=== PATIENT | male | born 1955 | race Caucasian/White ===

== ENCOUNTER 2017-07-28 12:02 | Inpatient (IN) | payer OTHER ==
[~2017-07-28] VITALS: Ht 165.1 cm; Wt 83.2 kg
[~2017-07-28 12:02] MED LIST: GLU5 PO; GLU500 PO; LACTULOSE10 GM/152 PO; NEO500 PO; THERAGRAN-M1 TA4 PO
[2017-07-28 12:08] VITALS: Ht 165.1 cm; Wt 83.2 kg
[2017-07-28 13:25] LABS: BASOPHIL % 1.7 % (0-2)
[2017-07-28 13:33] LABS: PLATELET COUNT 123 x10^3mcL (130-400); RED CELL DISTRIBUTION WIDTH 16.3 % (11.5-14.5)
[2017-07-28 13:45] LABS: CALCIUM 9.4 mg/dL (8.5-10.1); CARBON DIOXIDE 26.4 mmol/L (21-32); CHLORIDE SERUM 104 mmol/L (98-107); GFR1 > 60 mL/min; GLUCOSE SERUM 342 mg/dL (74-106); POTASSIUM SERUM 4.3 mmol/L (3.5-5.1); SODIUM SERUM 134 mmol/L (136-145)
[2017-07-28 13:51] LABS: ALKALINE PHOSPHATASE 137 U/L (46-116); ALT/SGPT 31 U/L (16-63); AST/SGOT 39 U/L (15-37); BILIRUBIN TOTAL 1.3 mg/dL (0.20-1.00); LIPASE 192 IU/L (73-393); TOTAL PROTEIN, SERUM 7.1 g/dL (6.4-8.2); TRIGLYCERIDES 49 mg/dL (<150)
[2017-07-28 13:53] LABS: ALBUMIN 2.8 g/dL (3.4-5.0); CHOLESTEROL 124 mg/dL (<200); CHOLESTEROL/HDL RATIO 1.7; HDL CHOLESTEROL 72 mg/dL (40-60)
[2017-07-28 14:33] LABS: T3 TOTAL 0.73 ng/mL
[2017-07-28 14:35] LABS: FREE T4 1.18 ng/dL (0.76-1.46); FREE THYROXINE INDEX 2.2 ug/dL (1.4-4.5); T4(THYROXINE) 6.5 ug/dL (4.7-13.3)
[2017-07-28] MEDS ORDERED: METFORMIN HCL750 MG PO (17:56)
[2017-07-28] MEDS ORDERED: OMEPRAZOLE40 M1 PO (17:56)
[2017-07-28] MEDS ORDERED: CLOBETASOL PROP0.05% TOP (17:57)
[2017-07-28] MEDS ORDERED: CALCIPOTRIENE TOP (17:58)
[2017-07-28] MEDS ORDERED: CRESTOR10 M1 PO (17:59)
[2017-07-28] MEDS ORDERED: SPIRONOLACTONE100 MG PO (17:59)
[2017-07-28] MEDS ORDERED: GOOD SENSE OMEP20 MG PO (18:02)
[2017-07-28 18:38] LABS: UA SPECIFIC GRAVITY 1.015 (1.005-1.035); microscopic required? YES; urine erythrocyte NEGATIVE (NEGATIVE)
[2017-07-28 18:45] VITALS: BP 145/63
[2017-07-28 18:51] LABS: AMPHETAMINE QUAL UR NONE DETECTED (NEG <=1000)
[2017-07-28 18:52] LABS: MAGNESIUM 2.1 mg/dL (1.8-2.4); PHOSPHOROUS 2.9 mg/dL (2.5-4.9)
[2017-07-28 20:48] VITALS: BP 185/82
[2017-07-28 21:58] VITALS: BP 153/57
[2017-07-29 05:46] VITALS: BP 143/85
[2017-07-29 07:33] LABS: CALCIUM 8.4 mg/dL (8.5-10.1); CHLORIDE SERUM 107 mmol/L (98-107); CREATININE SERUM 0.9 mg/dL (0.7-1.3); GFR1 > 60 mL/min; GLUCOSE SERUM 226 mg/dL (74-106); POTASSIUM SERUM 3.9 mmol/L (3.5-5.1); SODIUM SERUM 140 mmol/L (136-145)
[2017-07-29 07:38] LABS: BASOPHIL % 1.3 % (0-2)
[2017-07-29 07:39] LABS: PLATELET COUNT 105 x10^3mcL (130-400); RED CELL DISTRIBUTION WIDTH 16.5 % (11.5-14.5)
[2017-07-29 09:09] VITALS: BP 140/64
[2017-07-29 13:17] VITALS: BP 174/91
[2017-07-29 16:44] VITALS: BP 150/76
[2017-07-29 19:43] VITALS: BP 139/76
[2017-07-29 20:42] VITALS: BP 131/70
[2017-07-30 06:40] VITALS: BP 165/78
[2017-07-30 07:27] LABS: CALCIUM 8.8 mg/dL (8.5-10.1); CHLORIDE SERUM 105 mmol/L (98-107); CREATININE SERUM 0.8 mg/dL (0.7-1.3); GFR1 > 60 mL/min; GLUCOSE SERUM 146 mg/dL (74-106); MAGNESIUM 1.8 mg/dL (1.8-2.4); PHOSPHOROUS 3.8 mg/dL (2.5-4.9); POTASSIUM SERUM 3.6 mmol/L (3.5-5.1); SODIUM SERUM 140 mmol/L (136-145)
[2017-07-30 08:19] LABS: BASOPHIL % 1.3 % (0-2)
[2017-07-30 08:22] LABS: PLATELET COUNT 116 x10^3mcL (130-400); RED CELL DISTRIBUTION WIDTH 16.6 % (11.5-14.5)
[2017-07-30 08:46] VITALS: BP 168/77
[2017-07-30 09:32] VITALS: BP 146/78
[2017-07-30] MEDS ORDERED: ZESTRIL40 MG PO (10:32)
[2017-07-30] MEDS ORDERED: METFORMIN HYD1000 M2 PO (10:33)
[2017-07-30] MEDS ORDERED: LAC30L PO (10:33)
[2017-07-30 10:57] VITALS: BP 168/77
[2017-07-30 11:05] VITALS: BP 138/85
== END 2017-07-30 14:38 | disposition home health service (06) | DRG 441 ==
LOC: ED 12:02 → DU 15:52
PROVIDERS: Family Medicine Sports Medicine; Specialist
DX: K72.90 Hepatic failure, unspecified without coma (principal); N17.0 Acute kidney failure with tubular necrosis; E43 Unspecified severe protein-calorie malnutrition; E87.1 Hypo-osmolality and hyponatremia; I16.0 Hypertensive urgency; E11.65 Type 2 diabetes mellitus with hyperglycemia; K74.60 Unspecified cirrhosis of liver; D69.59 Other secondary thrombocytopenia; Z91.14 Patient's other noncompliance with medication regimen; Z68.32 Body mass index [BMI] 32.0-32.9, adult
CPT/HCPCS: 83880; 84439; J7030; Q0092

== ENCOUNTER 2017-08-31 18:03 | Inpatient (IN) | payer OTHER ==
[~2017-08-31] VITALS: Ht 165.1 cm; Wt 78.2 kg
[~2017-08-31 18:03] MED LIST changes: +CALCIPOTRIENE TOP; +CLOBETASOL PROP0.05% TOP; +CRESTOR10 M1 PO; +GOOD SENSE OMEP20 MG PO; +LAC30L PO; +METFORMIN HCL750 MG PO; +METFORMIN HYD1000 M2 PO; +OMEPRAZOLE40 M1 PO; +SPIRONOLACTONE100 MG PO; +ZESTRIL40 MG PO
[2017-08-31 18:15] VITALS: Ht 165.1 cm; Wt 78.2 kg
[2017-08-31 18:36] LABS: microscopic required? NO
[2017-08-31 18:47] LABS: urine erythrocyte NEGATIVE (NEGATIVE)
[2017-08-31 18:58] LABS: AMPHETAMINE QUAL UR NONE DETECTED (NEG <=1000)
[2017-08-31 19:03] LABS: BASOPHIL % 0.4 % (0-2)
[2017-08-31 19:05] LABS: PLATELET COUNT 98 x10^3mcL (130-400); RED CELL DISTRIBUTION WIDTH 16.8 % (11.5-14.5)
[2017-08-31 19:13] LABS: CALCIUM 9.5 mg/dL (8.5-10.1); CARBON DIOXIDE 21.6 mmol/L (21-32); CHLORIDE SERUM 103 mmol/L (98-107); CREATININE SERUM 1.1 mg/dL (0.7-1.3); GFR1 > 60 mL/min; GLUCOSE SERUM 144 mg/dL (74-106); POTASSIUM SERUM 4.9 mmol/L (3.5-5.1); SODIUM SERUM 133 mmol/L (136-145)
[2017-08-31 19:17] LABS: ALKALINE PHOSPHATASE 163 U/L (46-116); ALT/SGPT 77 U/L (16-63); AST/SGOT 72 U/L (15-37); BILIRUBIN TOTAL 0.9 mg/dL (0.20-1.00); LIPASE 371 IU/L (73-393); TOTAL PROTEIN, SERUM 7.7 g/dL (6.4-8.2)
[2017-08-31 19:18] LABS: ALBUMIN 3.2 g/dL (3.4-5.0)
[2017-08-31 21:14] LABS: CHOLESTEROL/HDL RATIO 2.7; PHOSPHOROUS 3.3 mg/dL (2.5-4.9)
[2017-08-31 21:20] LABS: T3 TOTAL 0.87 ng/mL
[2017-08-31 21:45] LABS: FREE T4 1.28 ng/dL (0.76-1.46); FREE THYROXINE INDEX 2.6 ug/dL (1.4-4.5); T4(THYROXINE) 7.6 ug/dL (4.7-13.3)
[2017-08-31 22:26] VITALS: BP 152/87
[2017-09-01 05:51] VITALS: BP 163/89
[2017-09-01 07:55] LABS: BASOPHIL % 0.8 % (0-2)
[2017-09-01 08:01] LABS: CALCIUM 8.7 mg/dL (8.5-10.1); CARBON DIOXIDE 19.5 mmol/L (21-32); CHLORIDE SERUM 106 mmol/L (98-107); GFR1 > 60 mL/min; GLUCOSE SERUM 137 mg/dL (74-106); MAGNESIUM 1.8 mg/dL (1.8-2.4); POTASSIUM SERUM 4.1 mmol/L (3.5-5.1); SODIUM SERUM 138 mmol/L (136-145)
[2017-09-01 08:05] LABS: PLATELET COUNT 75 x10^3mcL (130-400); RED CELL DISTRIBUTION WIDTH 16.5 % (11.5-14.5)
[2017-09-01 10:02] VITALS: BP 162/83
[2017-09-01 14:19] VITALS: BP 133/81
[2017-09-01 16:46] VITALS: BP 147/87
[2017-09-02 05:30] VITALS: BP 113/67
[2017-09-02 07:29] LABS: BASOPHIL % 0.8 % (0-2)
[2017-09-02 07:43] LABS: PLATELET COUNT 79 x10^3mcL (130-400); RED CELL DISTRIBUTION WIDTH 16.8 % (11.5-14.5)
[2017-09-02 07:45] LABS: CALCIUM 8.6 mg/dL (8.5-10.1); CARBON DIOXIDE 20.2 mmol/L (21-32); CHLORIDE SERUM 107 mmol/L (98-107); CREATININE SERUM 0.9 mg/dL (0.7-1.3); GFR1 > 60 mL/min; GLUCOSE SERUM 123 mg/dL (74-106); MAGNESIUM 1.6 mg/dL (1.8-2.4); PHOSPHOROUS 4.1 mg/dL (2.5-4.9); POTASSIUM SERUM 3.8 mmol/L (3.5-5.1); SODIUM SERUM 137 mmol/L (136-145)
[2017-09-02 09:00] VITALS: BP 118/71
[2017-09-02 12:38] VITALS: BP 109/56
[2017-09-02 17:35] VITALS: BP 94/59
[2017-09-02 20:51] VITALS: BP 106/55
[2017-09-03 05:47] VITALS: BP 122/63
[2017-09-03 07:19] LABS: BASOPHIL % 0.4 % (0-2)
[2017-09-03 07:46] LABS: PLATELET COUNT 90 x10^3mcL (130-400)
[2017-09-03 07:47] LABS: CALCIUM 8.7 mg/dL (8.5-10.1); CARBON DIOXIDE 19.3 mmol/L (21-32); CHLORIDE SERUM 105 mmol/L (98-107); CREATININE SERUM 0.9 mg/dL (0.7-1.3); GFR1 > 60 mL/min; GLUCOSE SERUM 111 mg/dL (74-106); PHOSPHOROUS 4.3 mg/dL (2.5-4.9); POTASSIUM SERUM 4.2 mmol/L (3.5-5.1); SODIUM SERUM 135 mmol/L (136-145)
[2017-09-03 09:24] VITALS: BP 111/61
[2017-09-03 12:41] VITALS: BP 98/55
[2017-09-03] MEDS ORDERED: XIFAXAN550 M1 PO (16:56)
[2017-09-03] MEDS ORDERED: ADA30 PO (16:57)
[2017-09-03 17:35] VITALS: BP 98/55
[2017-09-03 17:39] VITALS: BP 101/53
== END 2017-09-03 19:24 | disposition home or self-care (01) | DRG 442 ==
LOC: ED 18:03 → DU 20:35
PROVIDERS: Emergency Medicine; Family Medicine
DX: K72.90 Hepatic failure, unspecified without coma (principal); E87.1 Hypo-osmolality and hyponatremia; E44.0 Moderate protein-calorie malnutrition; K70.30 Alcoholic cirrhosis of liver without ascites; F10.21 Alcohol dependence, in remission; D69.59 Other secondary thrombocytopenia; E83.42 Hypomagnesemia; E11.65 Type 2 diabetes mellitus with hyperglycemia; I10 Essential (primary) hypertension; I34.0 Nonrheumatic mitral (valve) insufficiency; I37.1 Nonrheumatic pulmonary valve insufficiency; Z79.84 Long term (current) use of oral hypoglycemic drugs; Z68.28 Body mass index [BMI] 28.0-28.9, adult
CPT/HCPCS: 83880; 84439; G0480; J3475; J7030; Q0092

== ENCOUNTER 2018-01-25 12:17 | Emergency (ER) | payer OTHER ==
[~2018-01-25] VITALS: Ht 167.6 cm; Wt 83.5 kg
[~2018-01-25 12:17] MED LIST changes: +ADA30 PO; +XIFAXAN550 M1 PO
[2018-01-25 12:22] VITALS: Ht 167.6 cm; Wt 83.5 kg
[2018-01-25 13:23] VITALS: BP 147/82
== END 2018-01-25 13:23 | disposition home or self-care (01) ==
LOC: ED 12:17
DX: S31.159A Open bite of abdominal wall, unspecified quadrant without penetration into peritoneal cavity, initial encounter (principal); I10 Essential (primary) hypertension; E11.9 Type 2 diabetes mellitus without complications; Z87.19 Personal history of other diseases of the digestive system; W54.0XXA Bitten by dog, initial encounter; Y93.89 Activity, other specified; Y92.89 Other specified places as the place of occurrence of the external cause; Y99.8 Other external cause status
CPT/HCPCS: 90715

== ENCOUNTER 2018-02-07 08:36 | Emergency (ER) | payer OTHER ==
[2018-02-07 08:49] VITALS: Ht 167.6 cm
[2018-02-07 10:41] VITALS: BP 147/86
== END 2018-02-07 10:41 | disposition home or self-care (01) ==
LOC: ED 08:36
DX: S30.1XXD Contusion of abdominal wall, subsequent encounter (principal); I10 Essential (primary) hypertension; E11.9 Type 2 diabetes mellitus without complications; Z98.890 Other specified postprocedural states; W54.0XXD Bitten by dog, subsequent encounter

== ENCOUNTER 2018-08-27 11:19 | Inpatient (IN) | payer OTHER | END 2018-08-29 13:35 | disposition short-term general hospital (02) | LOC: ED 11:19 → DU 14:10 → ED 11:19 → DU 14:10 → ED 11:19 → DU 14:10 → ED 11:19 → DU 14:10 → ED 11:19 → DU 14:10 | DX: I21.4 Non-ST elevation (NSTEMI) myocardial infarction (principal); E44.0 Moderate protein-calorie malnutrition; K74.60 Unspecified cirrhosis of liver; I10 Essential (primary) hypertension; E11.9 Type 2 diabetes mellitus without complications; K21.9 Gastro-esophageal reflux disease without esophagitis; Z68.31 Body mass index [BMI] 31.0-31.9, adult; Z79.84 Long term (current) use of oral hypoglycemic drugs; D69.6 Thrombocytopenia, unspecified ==

== ENCOUNTER 2018-09-05 23:42 | Emergency (ER) | payer OTHER ==
[~2018-09-05] VITALS: Ht 170.2 cm; Wt 83.0 kg
[2018-09-05 23:53] VITALS: Ht 170.2 cm; Wt 83.0 kg
[2018-09-06 01:47] LABS: BASOPHIL % 1.1 % (0-2); PLATELET COUNT 157 x10^3mcL (130-400)
[2018-09-06 01:49] LABS: CALCIUM 9.6 mg/dL (8.5-10.1); CARBON DIOXIDE 22.9 mmol/L (21-32); CHLORIDE SERUM 104 mmol/L (98-107); CREATININE SERUM 1.1 mg/dL (0.7-1.3); GFR1 > 60 mL/min; GLUCOSE SERUM 156 mg/dL (74-106); POTASSIUM SERUM 4.4 mmol/L (3.5-5.1); SODIUM SERUM 137 mmol/L (136-145)
[2018-09-06 02:04] LABS: ALKALINE PHOSPHATASE 152 U/L (46-116); ALT/SGPT 52 U/L (16-63); AST/SGOT 65 U/L (15-37); BILIRUBIN TOTAL 1.02 mg/dL (0.20-1.00); TOTAL PROTEIN, SERUM 7.6 g/dL (6.4-8.2)
[2018-09-06 02:23] LABS: RED CELL DISTRIBUTION WIDTH 16.2 % (11.5-14.5)
[2018-09-06 06:02] VITALS: BP 159/85
== END 2018-09-06 06:09 | disposition short-term general hospital (02) ==
LOC: ED 23:42
PROVIDERS: Emergency Medicine
DX: I45.81 Long QT syndrome (principal); I10 Essential (primary) hypertension; E11.9 Type 2 diabetes mellitus without complications
CPT/HCPCS: 36415; 83880; 85378; Q0092

== ENCOUNTER 2019-01-05 09:55 | Emergency (ER) | payer OTHER ==
[~2019-01-05] VITALS: Ht 165.1 cm; Wt 81.2 kg
[2019-01-05 10:16] VITALS: BP 151/80; Ht 165.1 cm; Wt 81.2 kg
== END 2019-01-05 11:29 | disposition home or self-care (01) ==
LOC: ED 09:55
DX: S01.01XD Laceration without foreign body of scalp, subsequent encounter (principal); I10 Essential (primary) hypertension; E11.9 Type 2 diabetes mellitus without complications; X58.XXXD Exposure to other specified factors, subsequent encounter

== ENCOUNTER 2019-03-11 11:40 | Inpatient (IN) | payer OTHER ==
[~2019-03-11] VITALS: Ht 170.2 cm; Wt 81.6 kg
[2019-03-11 12:34] LABS: CALCIUM 9.4 mg/dL (8.5-10.1); CARBON DIOXIDE 20.2 mmol/L (21-32); CHLORIDE SERUM 103 mmol/L (98-107); CREATININE SERUM 0.9 mg/dL (0.7-1.3); GFR1 > 60 mL/min; GLUCOSE SERUM 126 mg/dL (74-106); SODIUM SERUM 132 mmol/L (136-145)
[2019-03-11 12:39] LABS: ALKALINE PHOSPHATASE 125 U/L (46-116); ALT/SGPT 39 U/L (16-63); AST/SGOT 49 U/L (15-37); BASOPHIL % 1.1 % (0-2); CHOLESTEROL 136 mg/dL (<200); TOTAL PROTEIN, SERUM 7.1 g/dL (6.4-8.2)
[2019-03-11 12:41] LABS: PLATELET COUNT 106 x10^3mcL (130-400); RED CELL DISTRIBUTION WIDTH 15.6 % (11.5-14.5)
[2019-03-11 12:42] LABS: ALBUMIN 3.3 g/dL (3.4-5.0)
[2019-03-11] MEDS ORDERED: OLANZAPINE20 M1 PO (14:27)
[2019-03-11] MEDS ORDERED: CELEBREX200 MG PO (14:27)
[2019-03-11] MEDS ORDERED: METFORMIN HCL750 MG PO (14:27)
[2019-03-11] MEDS ORDERED: CLOPIDOGREL75 M1 PO (14:28)
[2019-03-11] MEDS ORDERED: TRAZODONE50 M1 PO (14:28)
[2019-03-11] MEDS ORDERED: LACTULOSE10 GM/152 PO (14:28)
[2019-03-11 14:37] LABS: MAGNESIUM 1.8 mg/dL (1.8-2.4); PHOSPHOROUS 2.9 mg/dL (2.5-4.9)
[2019-03-11 16:07] VITALS: BP 142/83
[2019-03-11 21:47] VITALS: BP 140/80
[2019-03-12 06:14] VITALS: BP 133/69
[2019-03-12 07:12] LABS: BASOPHIL % 1.1 % (0-2)
[2019-03-12 07:19] LABS: PLATELET COUNT 98 x10^3mcL (130-400); RED CELL DISTRIBUTION WIDTH 16.2 % (11.5-14.5)
[2019-03-12 07:58] LABS: CALCIUM 9.4 mg/dL (8.5-10.1); CARBON DIOXIDE 22.5 mmol/L (21-32); CHLORIDE SERUM 105 mmol/L (98-107); CREATININE SERUM 0.8 mg/dL (0.7-1.3); GFR1 > 60 mL/min; GLUCOSE SERUM 110 mg/dL (74-106); MAGNESIUM 1.8 mg/dL (1.8-2.4); PHOSPHOROUS 3.2 mg/dL (2.5-4.9); POTASSIUM SERUM 4.1 mmol/L (3.5-5.1); SODIUM SERUM 138 mmol/L (136-145)
[2019-03-12 08:56] VITALS: BP 142/79
[2019-03-12 12:45] VITALS: BP 130/63
[2019-03-12 16:50] VITALS: BP 136/67
[2019-03-12 20:00] VITALS: BP 134/70
[2019-03-12 22:10] VITALS: BP 113/61
[2019-03-13 06:05] VITALS: BP 146/73
[2019-03-13 06:27] LABS: BASOPHIL % 1.6 % (0-2)
[2019-03-13 06:47] LABS: PLATELET COUNT 97 x10^3mcL (130-400); RED CELL DISTRIBUTION WIDTH 15.4 % (11.5-14.5)
[2019-03-13 06:52] LABS: CALCIUM 9.3 mg/dL (8.5-10.1); CARBON DIOXIDE 21.6 mmol/L (21-32); CHLORIDE SERUM 102 mmol/L (98-107); CREATININE SERUM 0.9 mg/dL (0.7-1.3); GFR1 > 60 mL/min; GLUCOSE SERUM 119 mg/dL (74-106); MAGNESIUM 1.6 mg/dL (1.8-2.4); POTASSIUM SERUM 4.4 mmol/L (3.5-5.1); SODIUM SERUM 134 mmol/L (136-145)
[2019-03-13 10:09] VITALS: BP 151/65
[2019-03-13 11:22] VITALS: BP 151/65
== END 2019-03-13 12:02 | disposition home or self-care (01) | DRG 441 ==
LOC: ED 11:40 → MU 13:35 → DU 13:35 → MU 15:15 → DU 03-12 13:20
PROVIDERS: Emergency Medicine; Internal Medicine; ADMIT Internal Medicine
DX: K72.00 Acute and subacute hepatic failure without coma (principal); N17.0 Acute kidney failure with tubular necrosis; E87.1 Hypo-osmolality and hyponatremia; E44.1 Mild protein-calorie malnutrition; E72.20 Disorder of urea cycle metabolism, unspecified; I10 Essential (primary) hypertension; K70.30 Alcoholic cirrhosis of liver without ascites; L40.9 Psoriasis, unspecified; F31.9 Bipolar disorder, unspecified; E11.9 Type 2 diabetes mellitus without complications; I25.2 Old myocardial infarction; Z79.84 Long term (current) use of oral hypoglycemic drugs
CPT/HCPCS: 82962; 97116-GP; G0378; G0480; J7030; Q0092

== ENCOUNTER 2019-04-24 07:09 | Inpatient (IN) | payer OTHER ==
[~2019-04-24] VITALS: Ht 167.6 cm; Wt 68.9 kg
[~2019-04-24 07:09] MED LIST changes: +CELEBREX200 MG PO; +CLOPIDOGREL75 M1 PO; +OLANZAPINE20 M1 PO; +TRAZODONE50 M1 PO
[2019-04-24 07:22] VITALS: Ht 167.6 cm; Wt 68.9 kg
--- NOTE | 2019-04-24 07:25 | NUR ---
PT ASSISTED TO ASSIGNED BED VIA WHEELCHAIR. PT PLACED ON JOURNALISM INSTRUCTOR/CONTINUOUS POX. EKG IN PROGRESS. BS "109." PRIMARY CARE RN, MAKI, AT BEDSIDE.
--- NOTE | 2019-04-24 07:29 | NUR ---
BIB DAUGHTER FOR ALOC. DAUGHTER WHO DOES NOT LIVE WITH HIM STS "MY MOM CALLED ME AND TOLD ME TO BRING HIM TO THE HOSPITAL." DAUGHTER STS HE HAS HISTORY OF AMMONIA LEVELS BEING HIGH AND HE TAKES LACTULOSE AT HOME. DAUGHTER STS PT HAS HX OF LIVER PROBLEMS D/T BEING A PREVIOUS DRINKER. PT MUMBLES AND MOVES PURPOSEFULLY BUT ONLY FOLLOWS SIMPLE COMMANDS WITH REPEATED INSTRUCTIONS. PT WAS ABLE TO OPEN EYES UPON COMMAND AND STATED CORRECT FULL NAME WHEN ASKED TO. BREATHING IS E/U. DR MARES COMPLETED MSE
--- NOTE | 2019-04-24 07:38 | NUR ---
TAKEN TO CT SCAN VIA DIVINE
--- NOTE | 2019-04-24 07:46 | NUR ---
PORTABLE CXR AT BEDSIDE
[2019-04-24 08:08] LABS: BASOPHIL % 0.7 % (0-2)
[2019-04-24 08:11] LABS: PLATELET COUNT 91 x10^3mcL (130-400); RED CELL DISTRIBUTION WIDTH 16.3 % (11.5-14.5)
[2019-04-24 08:24] LABS: CALCIUM 9.5 mg/dL (8.5-10.1); CARBON DIOXIDE 22.6 mmol/L (21-32); CHLORIDE SERUM 103 mmol/L (98-107); CREATININE SERUM 1.2 mg/dL (0.7-1.3); GFR1 > 60 mL/min; GLUCOSE SERUM 116 mg/dL (74-106); POTASSIUM SERUM 5.4 mmol/L (3.5-5.1); SODIUM SERUM 135 mmol/L (136-145)
[2019-04-24 08:30] LABS: ALKALINE PHOSPHATASE 127 U/L (46-116); ALT/SGPT 37 U/L (16-63); AST/SGOT 36 U/L (15-37); BILIRUBIN TOTAL 1.1 mg/dL (0.20-1.00); CHOLESTEROL 149 mg/dL (<200); TOTAL PROTEIN, SERUM 7.6 g/dL (6.4-8.2)
[2019-04-24 08:33] LABS: ALBUMIN 3.3 g/dL (3.4-5.0)
--- NOTE | 2019-04-24 09:15 | NUR ---
AMB BACK FROM RESTROOM WITH SLOW GAIT ASSITED BY MYSELF AND PT'S DAUGHTER.
[2019-04-24 09:52] LABS: PHOSPHOROUS 2.7 mg/dL (2.5-4.9)
--- NOTE | 2019-04-24 09:57 | NUR ---
REPORT GIVEN TO EDDI
[2019-04-24 10:03] LABS: FREE T4 1.25 ng/dL (0.76-1.46); FREE THYROXINE INDEX 3.2 ug/dL (1.4-4.5); T4(THYROXINE) 9.8 ug/dL (4.7-13.3)
[2019-04-24 10:06] LABS: T3 TOTAL 1.22 ng/mL
--- NOTE | 2019-04-24 10:30 | NUR ---
PATIENT BROUGHT UP FROM ED BY RN, ACCOMPANIED BY DAUGHTER. DAUGHTER STATED THAT PATIENT NOTICED THAT JAD WAS ACTING ABNORMALY, HAD MISSED MULTIPLE DOSES OF LACTULOSE. IN ED PATIENT AMONIA LEVEL 157. PATIENT WAS ABLE TO AMBULATE WITH ASSISTANCE TO BED. A/OX1 TO SELF ONLY, TURKISH SPEAKING MAINLY. REDIRECTION NEEDED. WHEEZE IN BILATER UPPER LOBES, 100% ON ROOM AIR. NO COUGH. TELE 17 PLACED ON PATIENT SHOWING NSR WITH OCCASIONAL PVC'S, IN INDICATION OF CHEST PAIN. BOWEL SOUNDS ACTIE, PULSES PALPABLE X4. X3 AREAS OF PSORIASIS TO BACK AND CHEST ANTONIA. FAMILY AT BEDSIDE. BED IN LOWEST POSITION. BED ALARM ON. PATIENT CALL LIGHT WITHIN REACH
[2019-04-24 11:12] LABS: microscopic required? NO
[2019-04-24 11:34] VITALS: BP 146/80
[2019-04-24 11:39] LABS: AMPHETAMINE QUAL UR NONE DETECTED (See below)
[2019-04-24 11:41] LABS: urine erythrocyte NEGATIVE (NEGATIVE)
--- NOTE | 2019-04-24 12:35 | NUR ---
PATIENT GOT HIMSELF OUT OF BED AND AMBULATED TO RESTROOM WITHOUT INCIDENT. CALL LIGHT WITHIN REACH, WILL CONTINUE TO MONITOR
--- NOTE | 2019-04-24 13:04 | NUR ---
ADMINSITERED MEDICAITONS. NO PROBLEMS SEEN WITH SWALLOWING. GRACIE BELLA UPDATED
[2019-04-24 13:15] VITALS: BP 114/72
--- NOTE | 2019-04-24 14:26 | NUR ---
PATIENT RESTING AT THIS TIME. ROUSABLE TO VOICE. NO COMPLAINTS. BED IN LOWEST POSITION WITH ALARM ENABLED. CALL LIGHT WITHIN REACH, CONTINUING TO MONITOR
[2019-04-24 17:35] VITALS: BP 147/89
[2019-04-24 19:05] VITALS: BP 129/76
--- NOTE | 2019-04-24 19:16 | NUR ---
GAVE HAND OFF REPORT TO SAUL MARTINEZ. ANSERED QUESTIONS AND ENDROSED CARE
--- NOTE | 2019-04-24 19:20 | NUR ---
RECEIVED PT AWAKE ALERT TO NAME ,BIRTHDATE,TODAY'S DATE AND PLACE.SPEAKS TURKS AND [place] ONLY.DENIES CHESTPAIN AT THIS TIME.BP 129/76 MMHG,HR 81.BEDALARM ON AT THIS TIME.WILL CONTINUE TO MONITOR.
--- NOTE | 2019-04-25 04:46 | NUR ---
PT SLEPT WELL.ALERT AND ORIENTED X3,ABLE TO MAKE NEEDS KNOWN.DENIES ANY PAIN OR DISCOMFORT.ON LACTULOSE FOR HIGH AMMONIA.NO BM NOTED.ALL NEEDS MET.WILL CONTINUE TO MONITOR
[2019-04-25 05:06] VITALS: BP 149/80
[2019-04-25 06:55] LABS: CALCIUM 9.2 mg/dL (8.5-10.1); CARBON DIOXIDE 19.3 mmol/L (21-32); CHLORIDE SERUM 106 mmol/L (98-107); GFR1 > 60 mL/min; GLUCOSE SERUM 105 mg/dL (74-106); POTASSIUM SERUM 3.9 mmol/L (3.5-5.1); SODIUM SERUM 138 mmol/L (136-145)
[2019-04-25 07:06] LABS: PLATELET COUNT 95 x10^3mcL (130-400); RED CELL DISTRIBUTION WIDTH 16.1 % (11.5-14.5)
--- NOTE | 2019-04-25 07:30 | NUR ---
DROWSY DOZING OFF AND ON. ALERT TO SELF,SURROUNDINGS. BREATHING FREELY ON RA. DENIES ANY PAIN. SLIGHT GENERALIZED WEAKNESS. BRP, NO BM YET AFTER RECEIVING LACTULOSE. TELE # 17 NSR W PVC'S. BED IN LOW POSITION CALL LIGHT WITHIN REACH.
[2019-04-25 08:46] VITALS: BP 124/72
[2019-04-25 13:41] VITALS: BP 124/67
[2019-04-25 13:46] LABS: BASOPHIL 1 % (0-2); MONOCYTE 4 % (0-7); SEGMENTED NEUTROPHILS 55 % (37-75)
[2019-04-25 13:47] LABS: PLATELET MORPHOLOGY PLATELETS DECREASED; rbc morphology (normal/abnorm) ABNORMAL (NORMAL)
--- NOTE | 2019-04-25 15:46 | NUR ---
RESTING COMFORTABLY AND QUIETLY. DENIES ANY PAIN. NO BM YET. AMBULATED IN HALLWAY.
[2019-04-25 16:59] VITALS: BP 118/63
--- NOTE | 2019-04-25 19:02 | NUR ---
RESTING COMFORTABLY. NS INFUSING 70 CC HOUR. CONTINUES ON LACTULOSE. BM X 2 THIS SHIFT. AMBULATED IN HALLWAY.NO C/O PAIN. VSS. CALL LIGHT WITHIN REACH.
--- NOTE | 2019-04-25 19:10 | NUR ---
RECEIVED PT AWAKE ALERT AND VERBALLY RESPONSIVE IN YI.DENIES CHESTPAIN AT THIS TIME.BP 109/62 MMHG,HR 77.ABDOMEN SOFT AND NON-DISTENDED.ON LACTULOSE TX.REPORTED BM TODAY TO LOOSE STOOL.WILL CONTINUE TO MONITOR.
[2019-04-25 19:15] VITALS: BP 109/62
--- NOTE | 2019-04-26 04:40 | NUR ---
PT SLEPT WELL ALNIGHT.DENIES ANY PAIN OR DISCOMFORT.AMBULATES TO BR AND WELL TOLERATED.ALL NEEDS MET.WILL CONTINUE TO MONITOR.
[2019-04-26 05:17] VITALS: BP 125/61
--- NOTE | 2019-04-26 07:25 | NUR ---
RECEIVED PT FROM PHILANTHROPY OFFICER. PT AWAKE, ALERT. A/OX3. PT ON ROOM AIR WITH NO RESP DISTRESS NOTED. PT ON TELE 17, DENIES CHEST PAIN. IV ACCESS RIGHT HAND, CDI INFUSING NS AT 70ML/HR. PERIPHERAL PULSES PALPABLE, NO EDEMA NOTED. ACTIVE BS NOTED. PT REPORTS HAVING BM THIS AM. DENIES ISSUES WITH URINATION. PT AMBULATORY. SAFETY MEASURES IN PLACE, BED LOW AND LOCKED. CALL LIGHT WITHIN REACH.
[2019-04-26 08:28] VITALS: BP 148/58
--- NOTE | 2019-04-26 08:51 | NUR ---
DUE MEDICATIONS ADMINISTERED ORDERED. PT TOLERATED WELL. NO ACUTE DISTRESS OR DISCOMFORT NOTED AT THIS TIME. EDUCATION PROVIDED TO PATIENT REGARDING IMPORTANCE OF LACTULOSE TO KEEP AMMONIA LEVEL DOWN. PT VERBALIZED UNDERSTANDING. PT AMMONIA- 78 YESTERDAY, 152 TODAY. GRACIE Cash NP AWARE.
--- NOTE | 2019-04-26 09:30 | NUR ---
PT AMBULATING IN THE HALLWAY. STABLE AND STEADY. NO ACUTE DISTRESS NOTED.
[2019-04-26 12:45] VITALS: BP 133/74
--- NOTE | 2019-04-26 12:51 | NUR ---
DUE LACTULOSE ADMINISTERED AT THIS TIME ORDERED. PT AWAKE, ALERT EATING LUNCH. NO ACUTE DISTRESS OR DISCOMFORT NOTED AT THIS TIME. SAFETY MAINTAINED.
--- NOTE | 2019-04-26 15:00 | NUR ---
NEW IV TO LEFT FOREARM STARTED, OLD IV NOT FLUSHING. PT TOLERATED WELL. IV FLUIDS INFUSING NS AT 70ML/HR.
--- NOTE | 2019-04-26 16:02 | NUR ---
OLD IV REMOVED AT THIS TIME WITH CATHETER INTACT. NO SWELLING OR BLEEDING NOTED. PT TOLERATED WELL.
[2019-04-26 16:28] VITALS: BP 134/69
--- NOTE | 2019-04-26 18:48 | NUR ---
PT STABLE AT THIS TIME. ALL NEEDS TENDED TO THROUGHOUT SHIFT. 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
--- NOTE | 2019-04-26 19:10 | NUR ---
RECEIVED PT FROM TASHI MARTINEZ. PT AAOX3 AND URDU SPEAKING ONLY. FAMILY AT BEDSIDE. PT DENIES ANY HEADACHE OR DIZZINESS AT THIS TIME. PT IS ON TELE #17, NSR WITH HR 76. PT DENIES ANY CHEST PAIN OR PRESSURE AT THIS TIME. PT PULSES PALPABLE AND CAP REFILL <3 SEC. PT LUNG SOUNDS CTA ON RA. PT BREATHING EVEN AND UNLABORED. PT DENIES SOB OR RESPIRATORY DISTRESS AT THIS TIME. PT ABD SOFT AND NONDISTENDED. PT BOWEL SOUNDS ACTIVE X4. PT DENIES N/V/D AT THIS TIME. PT VOIDS FREELY. PT IS AMBULATORY. PT HAS PSORIASIS TO BACK AND CHEST AREA. PT RFA IV IS PATENT AND INTACT. IVF INFUSING WELL. CALL LIGHT WITHIN REACH. BED IN LOWEST POSITION. SIDE RAILS X2 UP. WILL CONTINUE TO MONITOR.
[2019-04-26 20:14] VITALS: BP 134/69
--- NOTE | 2019-04-26 20:29 | NUR ---
GAVE REPORT TO KIM MARTINEZ AT [facility]. ALS TRANSPORTATION IS ARRANGED WITH [facility] FOR [address] [employer] TIME. PT WILL BE GOING TO ROOM 217. PT IS STABLE AT THIS TIME. PT AND FAMILY ARE AWARE. WILL CONTINUE TO MONITOR.
[2019-04-26 20:30] VITALS: BP 125/70
--- NOTE | 2019-04-26 21:30 | NUR ---
GAVE REPORT TO [facility]. PT LEFT UNIT FOR TRANSFER TO [facility] ROOM 217. RECEIVING NURSE IS KIM. V/S STABLE. IV TO RFA INTACT AND SALINE-LOCKED. NO ACUTE DISTRESS NOTED.
== END 2019-04-26 21:38 | disposition short-term general hospital (02) | DRG 441 ==
LOC: ED 07:09 → DU 09:13
PROVIDERS: Emergency Medicine; ADMIT Family Medicine
DX: K72.00 Acute and subacute hepatic failure without coma (principal); N17.0 Acute kidney failure with tubular necrosis; E44.1 Mild protein-calorie malnutrition; K74.60 Unspecified cirrhosis of liver; E11.9 Type 2 diabetes mellitus without complications; I10 Essential (primary) hypertension; Z79.84 Long term (current) use of oral hypoglycemic drugs
CPT/HCPCS: 82962; 83880; 84439; 90658; 90732; C9113; G0378; G0480; J7030; Q0092